=== PATIENT | female | born 1970 | race Caucasian/White ===

== ENCOUNTER 2018-06-23 12:22 | Observation (INO) | payer BC, OTHER ==
[2018-06-23] MEDS ORDERED: Aspirin 81 MG Tab.Chew PO ONE (12:37)
[2018-06-23] MEDS ORDERED: Sodium Chloride 0.9% 2.5 ML Syringe FLUSH PRN (12:38)
[2018-06-23] MEDS ORDERED: Nitroglycerin 2% Oint 1 GM UD Packet TOP ONE (12:38)
[2018-06-23] MEDS ORDERED: Sodium Chloride 0.9% 10 ML Syringe FLUSH PRN (12:38)
[2018-06-23] MEDS ORDERED: Sodium Chloride 0.9% 1,000 ML IV SCH (12:45)
--- NOTE | 2018-06-23 12:56 | EDM.PDOC ---
ED HPI GENERAL MEDICAL PROBLEM - General Chief Complaint: Chest Pain Stated Complaint: CHEST PAIN Time Seen by Provider: 06/23/18 14:38 - History of Present Illness INITIAL COMMENTS - FREE TEXT/NARRATIVE: HISTORY AND PHYSICAL: History of present illness: Patient's a 48-year-old white female with history of gastric bypass who is a smoker and presents with concern of chest pain for a week and half this been somewhat off and on associated shortness of breath and radiation to her left shoulder and arm she denies fever chills nausea vomiting denies palpitations or other concern Review of systems: As per history of present illness and below otherwise all systems reviewed and negative. Past medical history: As per history of present illness and as reviewed below otherwise noncontributory. Surgical history: As per history of present illness and as reviewed below otherwise noncontributory. Social history: No reported history of drug or alcohol abuse. Family history: As per history of present illness and as reviewed below otherwise noncontributory. Physical exam: HEENT: Atraumatic, normocephalic, pupils reactive, negative for conjunctival pallor or scleral icterus, mucous membranes moist, throat clear, neck supple, nontender, trachea midline. Lungs: Clear to auscultation, breath sounds equal bilaterally, chest nontender. Heart: S1S2, regular, negative for clicks, rubs, or JVD. Abdomen: Soft, nondistended, nontender. Negative for masses or hepatosplenomegaly. Negative for costovertebral tenderness. Pelvis: Stable nontender. Genitourinary: Deferred. Rectal: Deferred. Extremities: Atraumatic, negative for cords or calf pain. Neurovascular unremarkable. Neuro: Awake, alert, oriented. Cranial nerves II through XII unremarkable. Cerebellum unremarkable. Motor and sensory unremarkable throughout. Exam nonfocal. Diagnostics: CBC CMP PT/INR troponin EKG chest x-ray Therapeutics: Aspirin 324 mg Nitropaste 1 inch Impression: Chest pain Definitive disposition and diagnosis as appropriate pending reevaluation and review of above. chest Pain Score (Numeric/FACES): 6 - Related Data Allergies Allergy/AdvReac Type Severity Reaction Status Date / Time Penicillins Allergy Rash Verified 06/23/18 12:30 Home Meds: Home Meds Desvenlafaxine [Khedezla] 100 mg PO DAILY 06/23/18 [History] Gabapentin [Neurontin] 300 mg PO DAILY 06/23/18 [History] Past Medical History HEENT History: Reports: None Cardiovascular History: Reports: None Respiratory History: Reports: None Gastrointestinal History: Reports: None Genitourinary History: Reports: None [employer] TO [employer] History: Reports: None Musculoskeletal History: Reports: None Neurological History: Reports: None Psychiatric History: Reports: Anxiety, Depression Endocrine/Metabolic History: Reports: None Hematologic History: Reports: None Immunologic History: Reports: None Oncologic (Cancer) History: Reports: None Dermatologic History: Reports: None - Past Surgical History Head Surgeries/Procedures: Reports: None HEENT Surgical History: Reports: None Cardiovascular Surgical History: Reports: None Respiratory Surgical History: Reports: None GI Surgical History: Reports: Bariatric Procedure Female Surgical History: Reports: None Endocrine Surgical History: Reports: None Neurological Surgical History: Reports: None Musculoskeletal Surgical History: Reports: None Oncologic Surgical History: Reports: None Dermatological Surgical History: Reports: None Social & Family History - Family History Cardiac: Reports: OR - Tobacco Use Smoking Status *Q: Current Every Day Smoker Years of Tobacco use: 20 Packs/Tins Daily: 1 - Caffeine Use Caffeine Use: Reports: Coffee - Recreational Drug Use Recreational Drug Use: No ED ROS GENERAL - Review of Systems Review Of Systems: ROS reveals no pertinent complaints other than HPI. ED EXAM, GENERAL - Physical Exam Exam: See Below (See dictation) Course - Vital Signs Last Recorded V/S: Last Vital Signs Temp 36.0 C 06/23/18 12:31 Pulse 113 H 06/23/18 12:31 Resp 18 06/23/18 12:31 BP 149/71 H 06/23/18 12:31 Pulse Ox 99 06/23/18 12:31 - Orders/Labs/Meds Orders: Active Orders 24 hr Category Date Time Status Patient Status [ADT] Routine ADT 06/23/18 14:24 Active Cardiac Monitoring [RC] CONTINUOUS Care 06/23/18 14:26 Active EKG 12 Lead [EKG Documentation Completion] [RC] STAT Care 06/23/18 12:36 Active EKG Documentation Completion [RC] DAILY Care 06/24/18 08:00 Active Oxygen Therapy [RC] PRN Care 06/23/18 14:24 Active Up ad Bettina [RC] ASDIRECTED Care 06/23/18 14:24 Active VTE/DVT Education [RC] PER UNIT ROUTINE Care 06/23/18 14:24 Active Vital Signs [RC] Q4H Care 06/23/18 14:24 Active Heart Healthy Diet [DIET] Diet 06/23/18 Dinner Active Ang Chest [CT] Stat Exams 06/23/18 13:49 Ordered CBC WITH AUTO DIFF [HEME] AM Lab 06/24/18 05:11 Ordered COMPREHENSIVE METABOLIC PN,CMP [CHEM] AM Lab 06/24/18 05:11 Ordered CULTURE URINE [RM] Stat Lab 06/23/18 12:53 Received TROPONIN I [CHEM] Routine Lab 06/23/18 16:00 Ordered Acetaminophen [Tylenol] Med 06/23/18 14:24 Ordered 650 mg PO Q4H PRN Desvenlafaxine [Khedezla] Med 06/24/18 09:00 Ordered 100 mg PO DAILY Docusate Sodium [Colace] Med 06/23/18 14:24 Ordered 100 mg PO BID PRN Enoxaparin [Lovenox] Med 06/23/18 14:30 Ordered 30 mg SUBCUT Q24H Gabapentin [Neurontin] Med 06/24/18 09:00 Ordered 300 mg PO DAILY Morphine Med 06/23/18 14:24 Ordered 2 mg IVPUSH Q2H PRN Nicotine [Habitrol] Med 06/23/18 14:30 Ordered 14 mg TRDERM DAILY Ondansetron [Zofran ODT] Med 06/23/18 14:24 Ordered 4 mg PO Q6H PRN Sodium Chloride 0.9% [Normal Saline] 1,000 ml Med 06/23/18 12:45 Active IV ASDIRECTED Sodium Chloride 0.9% [Saline Flush] Med 06/23/18 12:38 Active 10 ml FLUSH ASDIRECTED PRN Sodium Chloride 0.9% [Saline Flush] Med 06/23/18 12:38 Active 2.5 ml FLUSH ASDIRECTED PRN Temazepam [Restoril] Med 06/23/18 14:24 Ordered 15 mg PO BEDTIME PRN oxyCODONE Med 06/23/18 14:24 Ordered 5 mg PO Q4H PRN Saline Lock Insert [OM.PC] Stat Oth 06/23/18 12:38 Ordered Sequential Compression Device [OM.PC] Per Unit Routine Oth 06/23/18 14:26 Ordered Resuscitation Status Routine Resus Stat 06/23/18 14:24 Ordered Medication Orders Acetaminophen (Tylenol) 650 mg PO Q4H PRN PRN Reason: Pain (Mild 1-3)/fever Docusate Sodium (Colace) 100 mg PO BID PRN PRN Reason: Constipation Enoxaparin Sodium (Lovenox) 30 mg SUBCUT Q24H GEOVANI Gabapentin (Neurontin) 300 mg PO DAILY [facility] Sodium Chloride (Normal Saline) 1,000 mls @ 125 mls/hr IV ASDIRECTED GEOVANI Last Admin: 06/23/18 12:49 Dose: 125 mls/hr Morphine Sulfate (Morphine) 2 mg IVPUSH Q2H PRN PRN Reason: Pain (severe 7-10) Stop: 06/24/18 14:27 Nicotine (Habitrol) 14 mg TRDERM DAILY [facility] Non-Formulary Medication (Desvenlafaxine [Khedezla]) 100 mg PO DAILY [facility] Ondansetron HCl (Zofran Odt) 4 mg PO Q6H PRN PRN Reason: nausea, able to take PO Oxycodone HCl (Oxycodone) 5 mg PO Q4H PRN PRN Reason: Pain (moderate 4-6) Sodium Chloride (Saline Flush) 10 ml FLUSH ASDIRECTED PRN PRN Reason: Keep Vein Open Last Admin: 06/23/18 12:49 Dose: 10 ml Sodium Chloride (Saline Flush) 2.5 ml FLUSH ASDIRECTED PRN PRN Reason: Keep Vein Open Last Admin: 06/23/18 12:49 Dose: 2.5 ml Temazepam (Restoril) 15 mg PO BEDTIME PRN PRN Reason: Sleep Labs: Laboratory Tests 06/23/18 06/23/18 06/23/18 Range/Units 12:38 12:38 12:38 WBC 7.06 (4.0-11.0) K/uL RBC 4.97 (4.30-5.90) M/uL Hgb 10.1 L (12.0-16.0) g/dL Hct 33.3 L (36.0-46.0) % MCV 67.0 L (80.0-98.0) fL MCH 20.3 L (27.0-32.0) pg MCHC 30.3 L (31.0-37.0) g/dL RDW Std Deviation 44.9 (28.0-62.0) fl RDW Coeff of Kirill 19 H (11.0-15.0) % Plt Count 464 H (150-400) K/uL MPV 9.00 (7.40-12.00) fL Nucleated RBC % 0.0 /100WBC Nucleated RBCs # 0 K/uL INR 0.98 D-Dimer, Quantitative 2.01 H (0.0-0.52) mg/LFEU Sodium 137 (136-145) mmol/L Potassium 3.8 (3.5-5.1) mmol/L Chloride 104 (98-107) mmol/L Carbon Dioxide 24.6 (21.0-32.0) mmol/L BUN 9 (7.0-18.0) mg/dL Creatinine 0.9 (0.6-1.0) mg/dL Est Cr Clr Drug Dosing 70.28 mL/min Estimated GFR (MDRD) > 60.0 ml/min Glucose 100 (74-106) mg/dL Calcium 8.8 (8.5-10.1) mg/dL Total Bilirubin 0.2 (0.2-1.0) mg/dL AST 22 (15-37) IU/L ALT 25 (14-63) IU/L Alkaline Phosphatase 188 H (46-116) U/L Troponin I < 0.050 (0.000-0.056) ng/mL Total Protein 7.6 (6.4-8.2) g/dL Albumin 3.7 (3.4-5.0) g/dL Globulin 3.9 H (2.0-3.5) g/dL Albumin/Globulin Ratio 1.0 L (1.3-2.8) Urine Color Urine Appearance Urine pH (5.0-8.0) Ur Specific [place] (1.001-1.035) Urine Protein (NEGATIVE) mg/dL Urine Glucose (UA) (NEGATIVE) mg/dL Urine Ketones (NEGATIVE) mg/dL Urine Occult Blood (NEGATIVE) Urine Nitrite (NEGATIVE) Urine Bilirubin (NEGATIVE) Urine Urobilinogen (<2.0) EU/dL Ur Leukocyte Esterase (NEGATIVE) Urine RBC (0-2/HPF) Urine WBC (0-5/HPF) Ur Epithelial Cells (NONE-FEW) Urine Bacteria (NEGATIVE) 06/23/18 Range/Units 12:53 WBC (4.0-11.0) K/uL RBC (4.30-5.90) M/uL Hgb (12.0-16.0) g/dL Hct (36.0-46.0) % MCV (80.0-98.0) fL MCH (27.0-32.0) pg MCHC (31.0-37.0) g/dL RDW Std Deviation (28.0-62.0) fl RDW Coeff of Kirill (11.0-15.0) % Plt Count (150-400) K/uL MPV (7.40-12.00) fL Nucleated RBC % /100WBC Nucleated RBCs # K/uL INR D-Dimer, Quantitative (0.0-0.52) mg/LFEU Sodium (136-145) mmol/L Potassium (3.5-5.1) mmol/L Chloride (98-107) mmol/L Carbon Dioxide (21.0-32.0) mmol/L BUN (7.0-18.0) mg/dL Creatinine (0.6-1.0) mg/dL Est Cr Clr Drug Dosing mL/min Estimated GFR (MDRD) ml/min Glucose (74-106) mg/dL Calcium (8.5-10.1) mg/dL Total Bilirubin (0.2-1.0) mg/dL AST (15-37) IU/L ALT (14-63) IU/L Alkaline Phosphatase (46-116) U/L Troponin I (0.000-0.056) ng/mL Total Protein (6.4-8.2) g/dL Albumin (3.4-5.0) g/dL Globulin (2.0-3.5) g/dL Albumin/Globulin Ratio (1.3-2.8) Urine Color YELLOW Urine Appearance CLEAR Urine pH 6.0 (5.0-8.0) Ur Specific [place] 1.015 (1.001-1.035) Urine Protein NEGATIVE (NEGATIVE) mg/dL Urine Glucose (UA) NEGATIVE (NEGATIVE) mg/dL Urine Ketones NEGATIVE (NEGATIVE) mg/dL Urine Occult Blood TRACE-INTACT (NEGATIVE) Urine Nitrite NEGATIVE (NEGATIVE) Urine Bilirubin NEGATIVE (NEGATIVE) Urine Urobilinogen 0.2 (<2.0) EU/dL Ur Leukocyte Esterase NEGATIVE (NEGATIVE) Urine RBC 0-1 (0-2/HPF) Urine WBC 1-3 (0-5/HPF) Ur Epithelial Cells MODERATE (NONE-FEW) Urine Bacteria 1+ H (NEGATIVE) Meds: Medications Generic Name Dose Route Start Last Admin Trade Name Bobq PRN Reason Stop Dose Admin Acetaminophen 650 mg 06/23/18 14:24 Tylenol PO Q4H PRN Pain (Mild 1-3)/fever Docusate Sodium 100 mg 06/23/18 14:24 Colace PO BID PRN Constipation Enoxaparin Sodium 30 mg 06/23/18 14:30 Lovenox SUBCUT Q24H GEOVANI Gabapentin 300 mg 06/24/18 09:00 Neurontin PO DAILY [facility] Sodium Chloride 1,000 mls @ 125 mls/hr 06/23/18 12:45 06/23/18 12:49 Normal Saline IV 125 mls/hr ASDIRECTED GEOVANI Administration Morphine Sulfate 2 mg 06/23/18 14:24 Morphine IVPUSH 06/24/18 14:27 Q2H PRN Pain (severe 7-10) Nicotine 14 mg 06/23/18 14:30 Habitrol TRDERM DAILY [facility] Non-Formulary Medication 100 mg 06/24/18 09:00 Desvenlafaxine [Khedezla] PO DAILY [facility] Ondansetron HCl 4 mg 06/23/18 14:24 Zofran Odt PO Q6H PRN nausea, able to take PO Oxycodone HCl 5 mg 06/23/18 14:24 Oxycodone PO Q4H PRN Pain (moderate 4-6) Sodium Chloride 10 ml 06/23/18 12:38 06/23/18 12:49 Saline Flush FLUSH 10 ml ASDIRECTED PRN Administration Keep Vein Open Sodium Chloride 2.5 ml 06/23/18 12:38 06/23/18 12:49 Saline Flush FLUSH 2.5 ml ASDIRECTED PRN Administration Keep Vein Open Temazepam 15 mg 06/23/18 14:24 Restoril PO BEDTIME PRN Sleep Discontinued Medications Generic Name Dose Route Start Last Admin Trade Name Bobq PRN Reason Stop Dose Admin Aspirin 324 mg 06/23/18 12:37 06/23/18 12:49 Aspirin PO 06/23/18 12:38 324 mg ONETIME ONE Administration Iopamidol 50 ml 06/23/18 14:14 Isovue Multipack-370 (76%) IVPUSH 06/23/18 14:15 ONETIME STA Nitroglycerin 1 gm 06/23/18 12:38 06/23/18 12:49 Nitro-Bid 2% TOP 06/23/18 12:39 1 gm ONETIME ONE Administration Departure - Departure Time of Disposition: 14:38 Disposition: Refer to Observation Condition: Good Clinical Impression: Chest pain - Discharge Information Forms: ED Department Discharge - My Orders Last 24 Hours: My Active Orders 06/23/18 12:36 EKG 12 Lead [EKG Documentation Completion] [RC] STAT 06/23/18 12:38 Sodium Chloride 0.9% [Saline Flush] 10 ml FLUSH ASDIRECTED PRN Sodium Chloride 0.9% [Saline Flush] 2.5 ml FLUSH ASDIRECTED PRN Saline Lock Insert [OM.PC] Stat 06/23/18 12:45 Sodium Chloride 0.9% [Normal Saline] 1,000 ml IV ASDIRECTED 06/23/18 12:53 CULTURE URINE [RM] Stat 06/23/18 13:49 Ang Chest [CT] Stat - Assessment/Plan Last 24 Hours: My Active Orders 06/23/18 12:36 EKG 12 Lead [EKG Documentation Completion] [RC] STAT 06/23/18 12:38 Sodium Chloride 0.9% [Saline Flush] 10 ml FLUSH ASDIRECTED PRN Sodium Chloride 0.9% [Saline Flush] 2.5 ml FLUSH ASDIRECTED PRN Saline Lock Insert [OM.PC] Stat 06/23/18 12:45 Sodium Chloride 0.9% [Normal Saline] 1,000 ml IV ASDIRECTED 06/23/18 12:53 CULTURE URINE [RM] Stat 06/23/18 13:49 Ang Chest [CT] Stat
[2018-06-23 13:11] LABS: CHLORIDE,CL 104 mmol/L (98-107); SODIUM,NA 137 mmol/L (136-145)
--- NOTE | 2018-06-23 13:56 | CR ---
EXAM DATE: 06/23/18 PATIENT'S AGE: 48 Patient: OMAR HANDY Facility: [place], [place] Site . Site : [id number] Study: XRay Chest [id number] 1:18:41 PM Ordering Physician: Yumiko Tavera Final Report: INDICATION: Chest pain TECHNIQUE: Two view chest. FINDINGS: The lungs are clear. The heart, mediastinum and pulmonary vessels are of normal size. There is no evidence of pleural disease. IMPRESSION: Negative chest. Dictated by Naty Morrison MD @ Jun 23 2018 1:50PM (Electronic Signature) Report Signed by Proxy. JOHNY
[2018-06-23] MEDS ORDERED: Iopamidol 755 MG/ML 500 ML Multipack Bottle IVPUSH STA (14:14)
[2018-06-23] MEDS ORDERED: Temazepam 15 MG Cap PO PRN (14:24)
[2018-06-23] MEDS ORDERED: Docusate Sodium 100 MG Cap PO PRN (14:24)
[2018-06-23] MEDS ORDERED: oxyCODONE 5 MG Tab PO PRN (14:24)
[2018-06-23] MEDS ORDERED: Ondansetron 4 MG Tab.DIS PO PRN (14:24)
[2018-06-23] MEDS ORDERED: Morphine 2 MG/ML Syringe IVPUSH PRN (14:24)
[2018-06-23] MEDS ORDERED: Acetaminophen 325 MG Tab PO PRN (14:24)
[2018-06-23] MEDS ORDERED: Enoxaparin 30 MG/0.3 ML Syringe SUBCUT SCH (14:30)
--- NOTE | 2018-06-23 14:32 | PCM.HP ---
H&P History of Present Illness - General Date of Service: 06/23/18 Admit Problem/Dx: Admission Diagnosis/Problem Admission Diagnosis/Problem Chest pain Source of Information: Patient, Family, Old Records History Limitations: Reports: No Limitations - History of Present Illness Initial Comments - Free Text/Narative: The patient is an otherwise healthy 48-year-old lady who has presented to the emergency department with a complaint of chest pain. The patient reports that she has had off-and-on for the past week midsternal chest pain which is described as pressure and occasional pain in her left arm and the left side of her mandible. The patient has had no specific aggravating or relieving factors and the chest pain came on unprovoked. The patient has denied any nausea or vomiting associated with this. She does have some diaphoresis. The patient had originally attributed the pain to indigestion. She also be noted that the patient had parents that had coronary artery disease in their mid 40s. The patient has been in her usual state of health up until the present time. The patient has no other complaints at the present. Onset of Symptoms: Reports: Gradual Duration of Symptoms: Reports: Week(s):, Intermittent Location: Reports: Chest, Upper Extremity, Left, Radiates to (Neck and left lower jaw) Quality: Reports: Pressure Severity: Moderate Improves with: Reports: Rest Worsens with: Reports: Breathing Associated Symptoms: Reports: Diaphoresis chest Pain Score (Numeric/FACES): 6 - Related Data Allergies/Adverse Reactions: Allergies Allergy/AdvReac Type Severity Reaction Status Date / Time Penicillins Allergy Rash Verified 06/23/18 12:30 Home Medications: Home Meds Desvenlafaxine [Khedezla] 100 mg PO DAILY 06/23/18 [History] Gabapentin [Neurontin] 150 mg PO BID 06/23/18 [History] Past Medical History HEENT History: Reports: None Cardiovascular History: Reports: None Respiratory History: Reports: None Gastrointestinal History: Reports: None Genitourinary History: Reports: None GEOMAGNETICIAN History: Reports: None Musculoskeletal History: Reports: None Neurological History: Reports: None Psychiatric History: Reports: Anxiety, Depression Endocrine/Metabolic History: Reports: None Hematologic History: Reports: None Immunologic History: Reports: None Oncologic (Cancer) History: Reports: None Dermatologic History: Reports: None - Past Surgical History Head Surgeries/Procedures: Reports: None HEENT Surgical History: Reports: None Cardiovascular Surgical History: Reports: None Respiratory Surgical History: Reports: None GI Surgical History: Reports: Bariatric Procedure Female Surgical History: Reports: None Endocrine Surgical History: Reports: None Neurological Surgical History: Reports: None Musculoskeletal Surgical History: Reports: None Oncologic Surgical History: Reports: None Dermatological Surgical History: Reports: None Social & Family History - Family History Cardiac: Reports: [place] - Tobacco Use Smoking Status *Q: Current Every Day Smoker Years of Tobacco use: 20 Packs/Tins Daily: 1 - Caffeine Use Caffeine Use: Reports: Coffee - Recreational Drug Use Recreational Drug Use: No H&P Review of Systems - Review of Systems: Review Of Systems: See Below General: Reports: Diaphoresis HEENT: Reports: No Symptoms Pulmonary: Reports: Shortness of Breath Cardiovascular: Reports: Chest Pain Gastrointestinal: Reports: No Symptoms Genitourinary: Reports: No Symptoms Musculoskeletal: Reports: No Symptoms Skin: Reports: No Symptoms Psychiatric: Reports: No Symptoms Neurological: Reports: No Symptoms Hematologic/Lymphatic: Reports: No Symptoms Immunologic: Reports: No Symptoms Exam - Exam Exam: See Below - Vital Signs Vital Signs: Last Vital Signs Temp 36.0 C 06/23/18 12:31 Pulse 113 H 06/23/18 12:31 Resp 18 06/23/18 12:31 BP 149/71 H 06/23/18 12:31 Pulse Ox 99 06/23/18 12:31 Weight: 77.111 kg - Exam Quality Assessment: No: Supplemental Oxygen General: Alert, Oriented, Cooperative HEENT: Conjunctiva Clear, EACs Clear, EOMI, Mucosa Moist & Ivan, Nares Patent, Pupils Equal, Pupils Reactive Neck: Supple, Trachea Midline, Full Range of Motion. No: Lymphadenopathy, Thyromegaly Lungs: Clear to Auscultation, Normal Respiratory Effort Cardiovascular: Regular Rate, Regular Rhythm, Normal S1, Normal S2. No: Systolic Murmur, Diastolic Murmur GI/Abdominal Exam: Normal Bowel Sounds, Soft, Non-Tender, No Distention, No Mass (Female) Exam: Deferred Rectal (Female) Exam: Deferred Back Exam: Normal Inspection, Full Range of Motion Extremities: Normal Inspection, Normal Range of Motion, Non-Tender, No Pedal Edema Skin: Warm, Dry, Intact Neurological: Cranial Nerves Intact Neuro Extensive - Mental Status: Alert, Oriented x3 Neuro Extensive - Motor, Sensory, Reflexes: CN II-XII Intact, Normal Gait Psychiatric: Alert, Normal Affect, Normal Mood - Patient Data Lab Results Last 24 hrs: Laboratory Results - last 24 hr 06/23/18 06/23/18 06/23/18 Range/Units 12:38 12:38 12:38 WBC 7.06 (4.0-11.0) K/uL RBC 4.97 (4.30-5.90) M/uL Hgb 10.1 L (12.0-16.0) g/dL Hct 33.3 L (36.0-46.0) % MCV 67.0 L (80.0-98.0) fL MCH 20.3 L (27.0-32.0) pg MCHC 30.3 L (31.0-37.0) g/dL RDW Std Deviation 44.9 (28.0-62.0) fl RDW Coeff of Kirill 19 H (11.0-15.0) % Plt Count 464 H (150-400) K/uL MPV 9.00 (7.40-12.00) fL Nucleated RBC % 0.0 /100WBC Nucleated RBCs # 0 K/uL INR 0.98 D-Dimer, Quantitative 2.01 H (0.0-0.52) mg/LFEU Sodium 137 (136-145) mmol/L Potassium 3.8 (3.5-5.1) mmol/L Chloride 104 (98-107) mmol/L Carbon Dioxide 24.6 (21.0-32.0) mmol/L BUN 9 (7.0-18.0) mg/dL Creatinine 0.9 (0.6-1.0) mg/dL Est Cr Clr Drug Dosing 70.28 mL/min Estimated GFR (MDRD) > 60.0 ml/min Glucose 100 (74-106) mg/dL Calcium 8.8 (8.5-10.1) mg/dL Total Bilirubin 0.2 (0.2-1.0) mg/dL AST 22 (15-37) IU/L ALT 25 (14-63) IU/L Alkaline Phosphatase 188 H (46-116) U/L Troponin I < 0.050 (0.000-0.056) ng/mL Total Protein 7.6 (6.4-8.2) g/dL Albumin 3.7 (3.4-5.0) g/dL Globulin 3.9 H (2.0-3.5) g/dL Albumin/Globulin Ratio 1.0 L (1.3-2.8) Urine Color Urine Appearance Urine pH (5.0-8.0) Ur Specific Grant (1.001-1.035) Urine Protein (NEGATIVE) mg/dL Urine Glucose (UA) (NEGATIVE) mg/dL Urine Ketones (NEGATIVE) mg/dL Urine Occult Blood (NEGATIVE) Urine Nitrite (NEGATIVE) Urine Bilirubin (NEGATIVE) Urine Urobilinogen (<2.0) EU/dL Ur Leukocyte Esterase (NEGATIVE) Urine RBC (0-2/HPF) Urine WBC (0-5/HPF) Ur Epithelial Cells (NONE-FEW) Urine Bacteria (NEGATIVE) 06/23/18 Range/Units 12:53 WBC (4.0-11.0) K/uL RBC (4.30-5.90) M/uL Hgb (12.0-16.0) g/dL Hct (36.0-46.0) % MCV (80.0-98.0) fL MCH (27.0-32.0) pg MCHC (31.0-37.0) g/dL RDW Std Deviation (28.0-62.0) fl RDW Coeff of Kirill (11.0-15.0) % Plt Count (150-400) K/uL MPV (7.40-12.00) fL Nucleated RBC % /100WBC Nucleated RBCs # K/uL INR D-Dimer, Quantitative (0.0-0.52) mg/LFEU Sodium (136-145) mmol/L Potassium (3.5-5.1) mmol/L Chloride (98-107) mmol/L Carbon Dioxide (21.0-32.0) mmol/L BUN (7.0-18.0) mg/dL Creatinine (0.6-1.0) mg/dL Est Cr Clr Drug Dosing mL/min Estimated GFR (MDRD) ml/min Glucose (74-106) mg/dL Calcium (8.5-10.1) mg/dL Total Bilirubin (0.2-1.0) mg/dL AST (15-37) IU/L ALT (14-63) IU/L Alkaline Phosphatase (46-116) U/L Troponin I (0.000-0.056) ng/mL Total Protein (6.4-8.2) g/dL Albumin (3.4-5.0) g/dL Globulin (2.0-3.5) g/dL Albumin/Globulin Ratio (1.3-2.8) Urine Color YELLOW Urine Appearance CLEAR Urine pH 6.0 (5.0-8.0) Ur Specific Grant 1.015 (1.001-1.035) Urine Protein NEGATIVE (NEGATIVE) mg/dL Urine Glucose (UA) NEGATIVE (NEGATIVE) mg/dL Urine Ketones NEGATIVE (NEGATIVE) mg/dL Urine Occult Blood TRACE-INTACT (NEGATIVE) Urine Nitrite NEGATIVE (NEGATIVE) Urine Bilirubin NEGATIVE (NEGATIVE) Urine Urobilinogen 0.2 (<2.0) EU/dL Ur Leukocyte Esterase NEGATIVE (NEGATIVE) Urine RBC 0-1 (0-2/HPF) Urine WBC 1-3 (0-5/HPF) Ur Epithelial Cells MODERATE (NONE-FEW) Urine Bacteria 1+ H (NEGATIVE) Result Diagrams: 06/23/18 12:38 06/23/18 12:38 - Problem List (1) Atypical angina SNOMED Code(s): 682063939 ICD Code: I20.8 - OTHER FORMS OF ANGINA PECTORIS Status: Acute Priority: High Current Visit: Yes (2) History of gastric bypass SNOMED Code(s): 988378170 ICD Code: Z98.84 - BARIATRIC SURGERY STATUS Status: Chronic Priority: High Current Visit: Yes (3) Iron deficiency 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 SNOMED Code(s): 906037799 ICD Code: D50.8 - OTHER IRON DEFICIENCY ANEMIAS Status: Chronic Priority : Medium Current Visit: Yes (4) Tobacco use SNOMED Code(s): 119039173 ICD Code: Z72.0 - TOBACCO USE Status: Acute Current Visit: Yes Problem List Initiated/Reviewed/Updated: Yes Orders Last 24hrs: Active Orders 24 hr Category Date Time Status Patient Status [ADT] Routine ADT 06/23/18 14:24 Ordered Cardiac Monitoring [RC] CONTINUOUS Care 06/23/18 14:26 Ordered EKG 12 Lead [EKG Documentation Completion] [RC] STAT Care 06/23/18 12:36 Active EKG Documentation Completion [RC] DAILY Care 06/24/18 08:00 Ordered Oxygen Therapy [RC] PRN Care 06/23/18 14:24 Ordered Up ad Bettina [RC] ASDIRECTED Care 06/23/18 14:24 Ordered VTE/DVT Education [RC] PER UNIT ROUTINE Care 06/23/18 14:24 Ordered Vital Signs [RC] Q4H Care 06/23/18 14:24 Ordered Heart Healthy Diet [DIET] Diet 06/23/18 Dinner Ordered Ang Chest [CT] Stat Exams 06/23/18 13:49 Ordered CBC WITH AUTO DIFF [HEME] AM Lab 06/24/18 05:11 Ordered COMPREHENSIVE METABOLIC PN,CMP [CHEM] AM Lab 06/24/18 05:11 Ordered CULTURE URINE [RM] Stat Lab 06/23/18 12:53 Received TROPONIN I [CHEM] Timed Lab 06/23/18 16:00 Ordered Acetaminophen [Tylenol] Med 06/23/18 14:24 Ordered 650 mg PO Q4H PRN Desvenlafaxine [Khedezla] Med 06/24/18 09:00 Ordered 100 mg PO DAILY Docusate Sodium [Colace] Med 06/23/18 14:24 Ordered 100 mg PO BID PRN Enoxaparin [Lovenox] Med 06/23/18 14:30 Ordered 30 mg SUBCUT Q24H Gabapentin [Neurontin] Med 06/24/18 09:00 Ordered 300 mg PO DAILY Morphine Med 06/23/18 14:24 Ordered 2 mg IVPUSH Q2H PRN Nicotine [Habitrol] Med 06/23/18 14:30 Ordered 14 mg TRDERM DAILY Ondansetron [Zofran ODT] Med 06/23/18 14:24 Ordered 4 mg PO Q6H PRN Sodium Chloride 0.9% [Normal Saline] 1,000 ml Med 06/23/18 12:45 Active IV ASDIRECTED Sodium Chloride 0.9% [Saline Flush] Med 06/23/18 12:38 Active 10 ml FLUSH ASDIRECTED PRN Sodium Chloride 0.9% [Saline Flush] Med 06/23/18 12:38 Active 2.5 ml FLUSH ASDIRECTED PRN Temazepam [Restoril] Med 06/23/18 14:24 Ordered 15 mg PO BEDTIME PRN oxyCODONE Med 06/23/18 14:24 Ordered 5 mg PO Q4H PRN Saline Lock Insert [OM.PC] Stat Oth 06/23/18 12:38 Ordered Sequential Compression Device [OM.PC] Per Unit Routine Oth 06/23/18 14:26 Ordered Resuscitation Status Routine Resus Stat 06/23/18 14:24 Ordered Medication Orders Acetaminophen (Tylenol) 650 mg PO Q4H PRN PRN Reason: Pain (Mild 1-3)/fever Docusate Sodium (Colace) 100 mg PO BID PRN PRN Reason: Constipation Enoxaparin Sodium (Lovenox) 30 mg SUBCUT Q24H [facility] Sodium Chloride (Normal Saline) 1,000 mls @ 125 mls/hr IV ASDIRECTED GEOVANI Last Admin: 06/23/18 12:49 Dose: 125 mls/hr Morphine Sulfate (Morphine) 2 mg IVPUSH Q2H PRN PRN Reason: Pain (severe 7-10) Stop: 06/24/18 14:27 Nicotine (Habitrol) 14 mg TRDERM DAILY [facility] Ondansetron HCl (Zofran Odt) 4 mg PO Q6H PRN PRN Reason: nausea, able to take PO Oxycodone HCl (Oxycodone) 5 mg PO Q4H PRN PRN Reason: Pain (moderate 4-6) Sodium Chloride (Saline Flush) 10 ml FLUSH ASDIRECTED PRN PRN Reason: Keep Vein Open Last Admin: 06/23/18 12:49 Dose: 10 ml Sodium Chloride (Saline Flush) 2.5 ml FLUSH ASDIRECTED PRN PRN Reason: Keep Vein Open Last Admin: 06/23/18 12:49 Dose: 2.5 ml Temazepam (Restoril) 15 mg PO BEDTIME PRN PRN Reason: Sleep Assessment/Plan Comment:: The patient is an otherwise healthy 48-year-old lady who had been admitted to observation secondary to chest pain. The patient's symptoms sound very much like unstable angina and I ordered repeat troponins. I also ordered a repeat EKG in the morning. Further laboratory testings of also been ordered. The patient also is a smoker and she's been strongly counseled about smoking cessation. I will also afforded a nicotine patch for her. The patient also is mildly anemic and this is likely secondary to her previous gastric bypass surgery and poor absorption of iron. The patient should follow-up with a primary care physician with regards to malabsorption syndrome for this. CBC has been ordered. The patient has been encouraged to ambulate. She'll be kept on IV saline lock. I have also ordered pain medications for her. If the patient has otherwise ruled out coronary event I strongly recommend that the patient have nuclear medicine stress test and follow-up with cardiology within 1 week to address this issue. She should be appropriate for discharge tomorrow if ruled out.
[2018-06-23] MEDS: Nicotine 14 MG/24 Hr Patch TRDERM SCH (15:28)
[2018-06-23] MEDS ORDERED: Magnesium Hydroxide 400 MG/5 ML Susp 30 ML Cup PO ONE (18:18)
[2018-06-23] MEDS: Gabapentin 300 MG Cap PO SCH (20:49)
[2018-06-23] MEDS ORDERED: Gabapentin 100 MG Cap PO SCH ×2 (21:00)
[2018-06-23] MEDS: Ranitidine 15 MG/ML Syrup 10 ML UD Cup PO SCH (22:31)
[2018-06-24 06:02] LABS: CHLORIDE,CL 107 mmol/L (98-107); SODIUM,NA 140 mmol/L (136-145)
[2018-06-24 07:26] VITALS: BP 128/70
[2018-06-24] MEDS: Ranitidine 15 MG/ML Syrup 10 ML UD Cup PO SCH (08:35)
[2018-06-24] MEDS: Gabapentin 300 MG Cap PO SCH (08:35)
[2018-06-24] MEDS: Nicotine 14 MG/24 Hr Patch TRDERM SCH ×2 (08:36→08:43)
[2018-06-24] MEDS: DESVENLAFAXINE 100 MG PO SCH ×2 (08:38→08:41)
[2018-06-24] MEDS ORDERED: Gabapentin 100 MG Cap PO SCH (09:00)
[2018-06-24] MEDS ORDERED: Gabapentin 300 MG Cap PO SCH (09:00)
--- NOTE | 2018-06-24 09:02 | PCM.DCSUM1 ---
<Toby Houston - Last Filed: 06/24/18 08:49> Discharge Summary - Hospital Course Free Text/Narrative:: Admission date:06/23/18 Discharge date:06/24/18 Admission diagnosis: 1. Atypical chest pain 2. History of gastric bypass 3. Iron deficiency anemia 4. Tobacco use Discharge diagnosis: 1. Atypical chest pain, ACS ruled out. 2. History of gastric bypass 3. Iron deficiency anemia due to above 4. Tobacco use Procedures: none Consults: none Hospital course: Rajan Meza is a 48 y/o female with a history of previous gastric bypass who presented to the ER complaining of chest pain. Initial troponins were 0.05. They were trended and remained at 0.05. CT chest did not show any pulmonary embolism, but it did show a suspicious left thyroid gland nodule. She will need an outpatient ultrasound to further assess this. Patient's chest pain resolved. She was recommended to take over the counter Zantac. In addition, she was recommended to restart her Iron pills since she was anemic due to iron deficiency. She will also need an outpatient stress test to further assess her symptoms. Follow-up: 1. Your primare care provider, Dr. Grijalva within 2 weeks. - Discharge Data Discharge Date: 06/24/18 Discharge Disposition: Home, Self-Care 01 Condition: Fair - Patient Instructions Diet: Regular Diet as Tolerated Activity: As Tolerated Notify Provider of: Fever, Increased Pain, Swelling and Redness, Drainage, Nausea and/or Vomiting - Discharge Plan *PRESCRIPTION DRUG MONITORING PROGRAM REVIEWED*: Not Applicable *COPY OF PRESCRIPTION DRUG MONITORING REPORT IN PATIENT SHAENLL: Not Applicable Home Medications: Home Meds Desvenlafaxine [Khedezla] 100 mg PO DAILY 06/23/18 [History] Gabapentin [Neurontin] 150 mg PO BID 06/23/18 [History] Patient Handouts: Nonspecific Chest Pain, [id number] Referrals: [facility] [Outside] Jb Grijalva MD [Physician] - 07/05/18 10:15 am - Discharge Summary/Plan Comment DC Time >30 min.: No - Patient Data Vitals - Most Recent: Last Vital Signs Temp 37.3 C 06/24/18 07:25 Pulse 81 06/24/18 04:00 Resp 14 09/27/18 07:25 BP 128/70 06/24/18 07:25 Pulse Ox 95 06/24/18 07:25 Weight - Most Recent: 77.111 kg I&O - Last 24 hours: Intake & Output 06/23/18 06/24/18 06/24/18 22:59 06:59 14:59 Intake Total 700 Output Total 1500 Balance -800 Lab Results - Last 24 hrs: Laboratory Results - last 24 hr 06/23/18 06/23/18 06/23/18 Range/Units 12:38 12:38 12:38 WBC 7.06 (4.0-11.0) K/uL RBC 4.97 (4.30-5.90) M/uL Hgb 10.1 L (12.0-16.0) g/dL Hct 33.3 L (36.0-46.0) % MCV 67.0 L (80.0-98.0) fL MCH 20.3 L (27.0-32.0) pg MCHC 30.3 L (31.0-37.0) g/dL RDW Std Deviation 44.9 (28.0-62.0) fl RDW Coeff of Kirill 19 H (11.0-15.0) % Plt Count 464 H (150-400) K/uL MPV 9.00 (7.40-12.00) fL Add Manual Diff Neutrophils % (Manual) (48.0-80.0) % Band Neutrophils % % Lymphocytes % (Manual) (16.0-40.0) % Monocytes % (Manual) (0.0-15.0) % Eosinophils % (Manual) (0.0-7.0) % Basophils % (Manual) (0.0-1.5) % Nucleated RBC % 0.0 /100WBC Absolute Seg Neuts (1.4-5.7) Band Neutrophils # Lymphocytes # (Manual) (0.6-2.4) Monocytes # (Manual) (0.0-0.8) Eosinophils # (Manual) (0.0-0.7) Basophils # (Manual) (0.0-0.1) Nucleated RBCs # 0 K/uL INR 0.98 D-Dimer, Quantitative 2.01 H (0.0-0.52) mg/LFEU Sodium 137 (136-145) mmol/L Potassium 3.8 (3.5-5.1) mmol/L Chloride 104 (98-107) mmol/L Carbon Dioxide 24.6 (21.0-32.0) mmol/L BUN 9 (7.0-18.0) mg/dL Creatinine 0.9 (0.6-1.0) mg/dL Est Cr Clr Drug Dosing 70.28 mL/min Estimated GFR (MDRD) > 60.0 ml/min Glucose 100 (74-106) mg/dL Calcium 8.8 (8.5-10.1) mg/dL Total Bilirubin 0.2 (0.2-1.0) mg/dL AST 22 (15-37) IU/L ALT 25 (14-63) IU/L Alkaline Phosphatase 188 H (46-116) U/L Troponin I < 0.050 (0.000-0.056) ng/mL Total Protein 7.6 (6.4-8.2) g/dL Albumin 3.7 (3.4-5.0) g/dL Globulin 3.9 H (2.0-3.5) g/dL Albumin/Globulin Ratio 1.0 L (1.3-2.8) Urine Color Urine Appearance Urine pH (5.0-8.0) Ur Specific [place] (1.001-1.035) Urine Protein (NEGATIVE) mg/dL Urine Glucose (UA) (NEGATIVE) mg/dL Urine Ketones (NEGATIVE) mg/dL Urine Occult Blood (NEGATIVE) Urine Nitrite (NEGATIVE) Urine Bilirubin (NEGATIVE) Urine Urobilinogen (<2.0) EU/dL Ur Leukocyte Esterase (NEGATIVE) Urine RBC (0-2/HPF) Urine WBC (0-5/HPF) Ur Epithelial Cells (NONE-FEW) Urine Bacteria (NEGATIVE) 06/23/18 06/23/18 06/23/18 Range/Units 12:53 16:16 22:12 WBC (4.0-11.0) K/uL RBC (4.30-5.90) M/uL Hgb (12.0-16.0) g/dL Hct (36.0-46.0) % MCV (80.0-98.0) fL MCH (27.0-32.0) pg MCHC (31.0-37.0) g/dL RDW Std Deviation (28.0-62.0) fl RDW Coeff of Kirill (11.0-15.0) % Plt Count (150-400) K/uL MPV (7.40-12.00) fL Add Manual Diff Neutrophils % (Manual) (48.0-80.0) % Band Neutrophils % % Lymphocytes % (Manual) (16.0-40.0) % Monocytes % (Manual) (0.0-15.0) % Eosinophils % (Manual) (0.0-7.0) % Basophils % (Manual) (0.0-1.5) % Nucleated RBC % /100WBC Absolute Seg Neuts (1.4-5.7) Band Neutrophils # Lymphocytes # (Manual) (0.6-2.4) Monocytes # (Manual) (0.0-0.8) Eosinophils # (Manual) (0.0-0.7) Basophils # (Manual) (0.0-0.1) Nucleated RBCs # K/uL INR D-Dimer, Quantitative (0.0-0.52) mg/LFEU Sodium (136-145) mmol/L Potassium (3.5-5.1) mmol/L Chloride (98-107) mmol/L Carbon Dioxide (21.0-32.0) mmol/L BUN (7.0-18.0) mg/dL Creatinine (0.6-1.0) mg/dL Est Cr Clr Drug Dosing mL/min Estimated GFR (MDRD) ml/min Glucose (74-106) mg/dL Calcium (8.5-10.1) mg/dL Total Bilirubin (0.2-1.0) mg/dL AST (15-37) IU/L ALT (14-63) IU/L Alkaline Phosphatase (46-116) U/L Troponin I < 0.050 < 0.050 (0.000-0.056) ng/mL Total Protein (6.4-8.2) g/dL Albumin (3.4-5.0) g/dL Globulin (2.0-3.5) g/dL Albumin/Globulin Ratio (1.3-2.8) Urine Color YELLOW Urine Appearance CLEAR Urine pH 6.0 (5.0-8.0) Ur Specific [place] 1.015 (1.001-1.035) Urine Protein NEGATIVE (NEGATIVE) mg/dL Urine Glucose (UA) NEGATIVE (NEGATIVE) mg/dL Urine Ketones NEGATIVE (NEGATIVE) mg/dL Urine Occult Blood TRACE-INTACT (NEGATIVE) Urine Nitrite NEGATIVE (NEGATIVE) Urine Bilirubin NEGATIVE (NEGATIVE) Urine Urobilinogen 0.2 (<2.0) EU/dL Ur Leukocyte Esterase NEGATIVE (NEGATIVE) Urine RBC 0-1 (0-2/HPF) Urine WBC 1-3 (0-5/HPF) Ur Epithelial Cells MODERATE (NONE-FEW) Urine Bacteria 1+ H (NEGATIVE) 06/24/18 06/24/18 Range/Units 05:15 05:15 WBC 5.20 (4.0-11.0) K/uL RBC 4.66 (4.30-5.90) M/uL Hgb 9.4 L (12.0-16.0) g/dL Hct 31.2 L (36.0-46.0) % MCV 67.0 L (80.0-98.0) fL MCH 20.2 L (27.0-32.0) pg MCHC 30.1 L (31.0-37.0) g/dL RDW Std Deviation 44.3 (28.0-62.0) fl RDW Coeff of Kirill 18 H (11.0-15.0) % Plt Count 442 H (150-400) K/uL MPV 9.20 (7.40-12.00) fL Add Manual Diff YES Neutrophils % (Manual) 33 L (48.0-80.0) % Band Neutrophils % 2 % Lymphocytes % (Manual) 39 (16.0-40.0) % Monocytes % (Manual) 7 (0.0-15.0) % Eosinophils % (Manual) 17 H (0.0-7.0) % Basophils % (Manual) 2 H (0.0-1.5) % Nucleated RBC % 0.0 /100WBC Absolute Seg Neuts 1.7 (1.4-5.7) Band Neutrophils # 0.1 Lymphocytes # (Manual) 2.0 (0.6-2.4) Monocytes # (Manual) 0.4 (0.0-0.8) Eosinophils # (Manual) 0.9 H (0.0-0.7) Basophils # (Manual) 0.1 (0.0-0.1) Nucleated RBCs # 0 K/uL INR D-Dimer, Quantitative (0.0-0.52) mg/LFEU Sodium 140 (136-145) mmol/L Potassium 4.1 (3.5-5.1) mmol/L Chloride 107 (98-107) mmol/L Carbon Dioxide 24.5 (21.0-32.0) mmol/L BUN 9 (7.0-18.0) mg/dL Creatinine 0.8 (0.6-1.0) mg/dL Est Cr Clr Drug Dosing 79.07 mL/min Estimated GFR (MDRD) > 60.0 ml/min Glucose 95 (74-106) mg/dL Calcium 8.8 (8.5-10.1) mg/dL Total Bilirubin 0.2 (0.2-1.0) mg/dL AST 17 (15-37) IU/L ALT 19 (14-63) IU/L Alkaline Phosphatase 163 H (46-116) U/L Troponin I (0.000-0.056) ng/mL Total Protein 6.8 (6.4-8.2) g/dL Albumin 3.2 L (3.4-5.0) g/dL Globulin 3.6 H (2.0-3.5) g/dL Albumin/Globulin Ratio 0.9 L (1.3-2.8) Urine Color Urine Appearance Urine pH (5.0-8.0) Ur Specific [place] (1.001-1.035) Urine Protein (NEGATIVE) mg/dL Urine Glucose (UA) (NEGATIVE) mg/dL Urine Ketones (NEGATIVE) mg/dL Urine Occult Blood (NEGATIVE) Urine Nitrite (NEGATIVE) Urine Bilirubin (NEGATIVE) Urine Urobilinogen (<2.0) EU/dL Ur Leukocyte Esterase (NEGATIVE) Urine RBC (0-2/HPF) Urine WBC (0-5/HPF) Ur Epithelial Cells (NONE-FEW) Urine Bacteria (NEGATIVE) Med Orders - Current: Current Medications Acetaminophen (Tylenol) 650 mg PO Q4H PRN PRN Reason: Pain (Mild 1-3)/fever Last Admin: 06/23/18 20:49 Dose: 650 mg Docusate Sodium (Colace) 100 mg PO BID PRN PRN Reason: Constipation Enoxaparin Sodium (Lovenox) 30 mg SUBCUT Q24H [facility] Last Admin: 06/23/18 16:28 Dose: 30 mg Gabapentin (Neurontin) 300 mg PO BID [facility] Last Admin: 06/24/18 08:35 Dose: 300 mg Morphine Sulfate (Morphine) 2 mg IVPUSH Q2H PRN PRN Reason: Pain (severe 7-10) Stop: 06/24/18 14:27 Nicotine (Habitrol) 14 mg TRDERM DAILY [facility] Last Admin: 06/24/18 08:43 Dose: Not Given Ondansetron HCl (Zofran Odt) 4 mg PO Q6H PRN PRN Reason: nausea, able to take PO Oxycodone HCl (Oxycodone) 5 mg PO Q4H PRN PRN Reason: Pain (moderate 4-6) Desvenlafaxine [ (Khedezla] 100 Mg) 1 each PO DAILY [facility] Last Admin: 06/24/18 08:41 Dose: 1 each Ranitidine HCl (Zantac) 150 mg PO BID [facility] Last Admin: 06/24/18 08:35 Dose: 150 mg Sodium Chloride (Saline Flush) 10 ml FLUSH ASDIRECTED PRN PRN Reason: Keep Vein Open Last Admin: 06/23/18 12:49 Dose: 10 ml Sodium Chloride (Saline Flush) 2.5 ml FLUSH ASDIRECTED PRN PRN Reason: Keep Vein Open Last Admin: 06/23/18 12:49 Dose: 2.5 ml Temazepam (Restoril) 15 mg PO BEDTIME PRN PRN Reason: Sleep Discontinued Medications Aspirin (Aspirin) 324 mg PO ONETIME ONE Stop: 06/23/18 12:38 Last Admin: 06/23/18 12:49 Dose: 324 mg Gabapentin (Neurontin) 300 mg PO DAILY [facility] Gabapentin (Neurontin) 150 mg PO BID [facility] Gabapentin (Neurontin) 200 mg PO DAILY [facility] Gabapentin (Neurontin) 100 mg PO BEDTIME [facility] Sodium Chloride (Normal Saline) 1,000 mls @ 125 mls/hr IV ASDIRECTED [facility] Last Admin: 06/23/18 12:49 Dose: 125 mls/hr Iopamidol (Isovue Multipack-370 (76%)) 50 ml IVPUSH ONETIME STA Stop: 06/23/18 14:15 Last Admin: 06/23/18 14:45 Dose: 50 ml Magnesium Hydroxide (Milk Of Magnesia) 30 ml PO ONETIME ONE Stop: 06/23/18 18:19 Last Admin: 06/23/18 18:28 Dose: 30 ml Nitroglycerin (Nitro-Bid 2%) 1 gm TOP ONETIME ONE Stop: 06/23/18 12:39 Last Admin: 06/23/18 12:49 Dose: 1 gm <Durga Loera - Last Filed: 06/24/18 09:42> Discharge Summary - Hospital Course HPI Initial Comments: I have seen and examined the patient independently of bilingual medical assistant. The patient is a 48-year-old lady who had been admitted to observation hospitalization secondary to atypical chest pain. The patient also was noted to have epigastric pain which had been managed effectively with Zantac. The patient also had an elevated troponin and had a CT scan of her chest which did not show any pulmonary emboli. The patient was also noted to be mildly anemic likely iron deficiency anemia and she has been recommended to follow up with this with her primary care physician. Also incidentally noted the patient did have an incidental thyroid nodule which was found on the left side during the CT scan of her chest. This should be followed up with an ultrasound. I have reviewed and agree with the medical residents assessment and plan of care. Please see orders. - Discharge Diagnosis/Problem(s) (1) Atypical angina SNOMED Code(s): 854251317 ICD Code: I20.8 - OTHER FORMS OF ANGINA PECTORIS Status: Acute Priority: High Current Visit: Yes (2) History of gastric bypass SNOMED Code(s): 509078295 ICD Code: Z98.84 - BARIATRIC SURGERY STATUS Status: Chronic Priority: High Current Visit: Yes (3) Iron deficiency 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 SNOMED Code(s): 009460961 ICD Code: D50.8 - OTHER IRON DEFICIENCY ANEMIAS Status: Chronic Priority : Medium Current Visit: Yes (4) Tobacco use SNOMED Code(s): 162044680 ICD Code: Z72.0 - TOBACCO USE Status: Acute Current Visit: Yes - Patient Data Vitals - Most Recent: Last Vital Signs Temp 37.3 C 06/24/18 07:25 Pulse 81 06/24/18 04:00 Resp 14 06/24/18 07:25 BP 128/70 06/24/18 07:25 Pulse Ox 95 06/24/18 07:25 I&O - Last 24 hours: Intake & Output 06/23/18 06/24/18 06/24/18 22:59 06:59 14:59 Intake Total 700 Output Total 1500 Balance -800 Lab Results - Last 24 hrs: Laboratory Results - last 24 hr 06/23/18 06/23/18 06/23/18 Range/Units 12:38 12:38 12:38 WBC 7.06 (4.0-11.0) K/uL RBC 4.97 (4.30-5.90) M/uL Hgb 10.1 L (12.0-16.0) g/dL Hct 33.3 L (36.0-46.0) % MCV 67.0 L (80.0-98.0) fL MCH 20.3 L (27.0-32.0) pg MCHC 30.3 L (31.0-37.0) g/dL RDW Std Deviation 44.9 (28.0-62.0) fl RDW Coeff of Kirill 19 H (11.0-15.0) % Plt Count 464 H (150-400) K/uL MPV 9.00 (7.40-12.00) fL Add Manual Diff Neutrophils % (Manual) (48.0-80.0) % Band Neutrophils % % Lymphocytes % (Manual) (16.0-40.0) % Monocytes % (Manual) (0.0-15.0) % Eosinophils % (Manual) (0.0-7.0) % Basophils % (Manual) (0.0-1.5) % Nucleated RBC % 0.0 /100WBC Absolute Seg Neuts (1.4-5.7) Band Neutrophils # Lymphocytes # (Manual) (0.6-2.4) Monocytes # (Manual) (0.0-0.8) Eosinophils # (Manual) (0.0-0.7) Basophils # (Manual) (0.0-0.1) Nucleated RBCs # 0 K/uL INR 0.98 D-Dimer, Quantitative 2.01 H (0.0-0.52) mg/LFEU Sodium 137 (136-145) mmol/L Potassium 3.8 (3.5-5.1) mmol/L Chloride 104 (98-107) mmol/L Carbon Dioxide 24.6 (21.0-32.0) mmol/L BUN 9 (7.0-18.0) mg/dL Creatinine 0.9 (0.6-1.0) mg/dL Est Cr Clr Drug Dosing 70.28 mL/min Estimated GFR (MDRD) > 60.0 ml/min Glucose 100 (74-106) mg/dL Calcium 8.8 (8.5-10.1) mg/dL Total Bilirubin 0.2 (0.2-1.0) mg/dL AST 22 (15-37) IU/L ALT 25 (14-63) IU/L Alkaline Phosphatase 188 H (46-116) U/L Troponin I < 0.050 (0.000-0.056) ng/mL Total Protein 7.6 (6.4-8.2) g/dL Albumin 3.7 (3.4-5.0) g/dL Globulin 3.9 H (2.0-3.5) g/dL Albumin/Globulin Ratio 1.0 L (1.3-2.8) Urine Color Urine Appearance Urine pH (5.0-8.0) Ur Specific [place] (1.001-1.035) Urine Protein (NEGATIVE) mg/dL Urine Glucose (UA) (NEGATIVE) mg/dL Urine Ketones (NEGATIVE) mg/dL Urine Occult Blood (NEGATIVE) Urine Nitrite (NEGATIVE) Urine Bilirubin (NEGATIVE) Urine Urobilinogen (<2.0) EU/dL Ur Leukocyte Esterase (NEGATIVE) Urine RBC (0-2/HPF) Urine WBC (0-5/HPF) Ur Epithelial Cells (NONE-FEW) Urine Bacteria (NEGATIVE) 06/23/18 06/23/18 06/23/18 Range/Units 12:53 16:16 22:12 WBC (4.0-11.0) K/uL RBC (4.30-5.90) M/uL Hgb (12.0-16.0) g/dL Hct (36.0-46.0) % MCV (80.0-98.0) fL MCH (27.0-32.0) pg MCHC (31.0-37.0) g/dL RDW Std Deviation (28.0-62.0) fl RDW Coeff of Kirill (11.0-15.0) % Plt Count (150-400) K/uL MPV (7.40-12.00) fL Add Manual Diff Neutrophils % (Manual) (48.0-80.0) % Band Neutrophils % % Lymphocytes % (Manual) (16.0-40.0) % Monocytes % (Manual) (0.0-15.0) % Eosinophils % (Manual) (0.0-7.0) % Basophils % (Manual) (0.0-1.5) % Nucleated RBC % /100WBC Absolute Seg Neuts (1.4-5.7) Band Neutrophils # Lymphocytes # (Manual) (0.6-2.4) Monocytes # (Manual) (0.0-0.8) Eosinophils # (Manual) (0.0-0.7) Basophils # (Manual) (0.0-0.1) Nucleated RBCs # K/uL INR D-Dimer, Quantitative (0.0-0.52) mg/LFEU Sodium (136-145) mmol/L Potassium (3.5-5.1) mmol/L Chloride (98-107) mmol/L Carbon Dioxide (21.0-32.0) mmol/L BUN (7.0-18.0) mg/dL Creatinine (0.6-1.0) mg/dL Est Cr Clr Drug Dosing mL/min Estimated GFR (MDRD) ml/min Glucose (74-106) mg/dL Calcium (8.5-10.1) mg/dL Total Bilirubin (0.2-1.0) mg/dL AST (15-37) IU/L ALT (14-63) IU/L Alkaline Phosphatase (46-116) U/L Troponin I < 0.050 < 0.050 (0.000-0.056) ng/mL Total Protein (6.4-8.2) g/dL Albumin (3.4-5.0) g/dL Globulin (2.0-3.5) g/dL Albumin/Globulin Ratio (1.3-2.8) Urine Color YELLOW Urine Appearance CLEAR Urine pH 6.0 (5.0-8.0) Ur Specific [place] 1.015 (1.001-1.035) Urine Protein NEGATIVE (NEGATIVE) mg/dL Urine Glucose (UA) NEGATIVE (NEGATIVE) mg/dL Urine Ketones NEGATIVE (NEGATIVE) mg/dL Urine Occult Blood TRACE-INTACT (NEGATIVE) Urine Nitrite NEGATIVE (NEGATIVE) Urine Bilirubin NEGATIVE (NEGATIVE) Urine Urobilinogen 0.2 (<2.0) EU/dL Ur Leukocyte Esterase NEGATIVE (NEGATIVE) Urine RBC 0-1 (0-2/HPF) Urine WBC 1-3 (0-5/HPF) Ur Epithelial Cells MODERATE (NONE-FEW) Urine Bacteria 1+ H (NEGATIVE) 06/24/18 06/24/18 Range/Units 05:15 05:15 WBC 5.20 (4.0-11.0) K/uL RBC 4.66 (4.30-5.90) M/uL Hgb 9.4 L (12.0-16.0) g/dL Hct 31.2 L (36.0-46.0) % MCV 67.0 L (80.0-98.0) fL MCH 20.2 L (27.0-32.0) pg MCHC 30.1 L (31.0-37.0) g/dL RDW Std Deviation 44.3 (28.0-62.0) fl RDW Coeff of Kirill 18 H (11.0-15.0) % Plt Count 442 H (150-400) K/uL MPV 9.20 (7.40-12.00) fL Add Manual Diff YES Neutrophils % (Manual) 33 L (48.0-80.0) % Band Neutrophils % 2 % Lymphocytes % (Manual) 39 (16.0-40.0) % Monocytes % (Manual) 7 (0.0-15.0) % Eosinophils % (Manual) 17 H (0.0-7.0) % Basophils % (Manual) 2 H (0.0-1.5) % Nucleated RBC % 0.0 /100WBC Absolute Seg Neuts 1.7 (1.4-5.7) Band Neutrophils # 0.1 Lymphocytes # (Manual) 2.0 (0.6-2.4) Monocytes # (Manual) 0.4 (0.0-0.8) Eosinophils # (Manual) 0.9 H (0.0-0.7) Basophils # (Manual) 0.1 (0.0-0.1) Nucleated RBCs # 0 K/uL INR D-Dimer, Quantitative (0.0-0.52) mg/LFEU Sodium 140 (136-145) mmol/L Potassium 4.1 (3.5-5.1) mmol/L Chloride 107 (98-107) mmol/L Carbon Dioxide 24.5 (21.0-32.0) mmol/L BUN 9 (7.0-18.0) mg/dL Creatinine 0.8 (0.6-1.0) mg/dL Est Cr Clr Drug Dosing 79.07 mL/min Estimated GFR (MDRD) > 60.0 ml/min Glucose 95 (74-106) mg/dL Calcium 8.8 (8.5-10.1) mg/dL Total Bilirubin 0.2 (0.2-1.0) mg/dL AST 17 (15-37) IU/L ALT 19 (14-63) IU/L Alkaline Phosphatase 163 H (46-116) U/L Troponin I (0.000-0.056) ng/mL Total Protein 6.8 (6.4-8.2) g/dL Albumin 3.2 L (3.4-5.0) g/dL Globulin 3.6 H (2.0-3.5) g/dL Albumin/Globulin Ratio 0.9 L (1.3-2.8) Urine Color Urine Appearance Urine pH (5.0-8.0) Ur Specific [place] (1.001-1.035) Urine Protein (NEGATIVE) mg/dL Urine Glucose (UA) (NEGATIVE) mg/dL Urine Ketones (NEGATIVE) mg/dL Urine Occult Blood (NEGATIVE) Urine Nitrite (NEGATIVE) Urine Bilirubin (NEGATIVE) Urine Urobilinogen (<2.0) EU/dL Ur Leukocyte Esterase (NEGATIVE) Urine RBC (0-2/HPF) Urine WBC (0-5/HPF) Ur Epithelial Cells (NONE-FEW) Urine Bacteria (NEGATIVE) Med Orders - Current: Current Medications Acetaminophen (Tylenol) 650 mg PO Q4H PRN PRN Reason: Pain (Mild 1-3)/fever Last Admin: 06/23/18 20:49 Dose: 650 mg Docusate Sodium (Colace) 100 mg PO BID PRN PRN Reason: Constipation Enoxaparin Sodium (Lovenox) 30 mg SUBCUT Q24H [facility] Last Admin: 06/23/18 16:28 Dose: 30 mg Gabapentin (Neurontin) 300 mg PO BID [facility] Last Admin: 06/24/18 08:35 Dose: 300 mg Morphine Sulfate (Morphine) 2 mg IVPUSH Q2H PRN PRN Reason: Pain (severe 7-10) Stop: 06/24/18 14:27 Nicotine (Habitrol) 14 mg TRDERM DAILY [facility] Last Admin: 06/24/18 08:43 Dose: Not Given Ondansetron HCl (Zofran Odt) 4 mg PO Q6H PRN PRN Reason: nausea, able to take PO Oxycodone HCl (Oxycodone) 5 mg PO Q4H PRN PRN Reason: Pain (moderate 4-6) Desvenlafaxine [ (Khedezla] 100 Mg) 1 each PO DAILY [facility] Last Admin: 06/24/18 08:41 Dose: 1 each Ranitidine HCl (Zantac) 150 mg PO BID [facility] Last Admin: 06/24/18 08:35 Dose: 150 mg Sodium Chloride (Saline Flush) 10 ml FLUSH ASDIRECTED PRN PRN Reason: Keep Vein Open Last Admin: 06/23/18 12:49 Dose: 10 ml Sodium Chloride (Saline Flush) 2.5 ml FLUSH ASDIRECTED PRN PRN Reason: Keep Vein Open Last Admin: 06/23/18 12:49 Dose: 2.5 ml Temazepam (Restoril) 15 mg PO BEDTIME PRN PRN Reason: Sleep Discontinued Medications Aspirin (Aspirin) 324 mg PO ONETIME ONE Stop: 06/23/18 12:38 Last Admin: 06/23/18 12:49 Dose: 324 mg Gabapentin (Neurontin) 300 mg PO DAILY [facility] Gabapentin (Neurontin) 150 mg PO BID [facility] Gabapentin (Neurontin) 200 mg PO DAILY [facility] Gabapentin (Neurontin) 100 mg PO BEDTIME [facility] Sodium Chloride (Normal Saline) 1,000 mls @ 125 mls/hr IV ASDIRECTED [facility] Last Admin: 06/23/18 12:49 Dose: 125 mls/hr Iopamidol (Isovue Multipack-370 (76%)) 50 ml IVPUSH ONETIME STA Stop: 06/23/18 14:15 Last Admin: 06/23/18 14:45 Dose: 50 ml Magnesium Hydroxide (Milk Of Magnesia) 30 ml PO ONETIME ONE Stop: 06/23/18 18:19 Last Admin: 06/23/18 18:28 Dose: 30 ml Nitroglycerin (Nitro-Bid 2%) 1 gm TOP ONETIME ONE Stop: 06/23/18 12:39 Last Admin: 06/23/18 12:49 Dose: 1 gm
--- NOTE | 2018-06-24 09:57 | CT ---
EXAM DATE: 06/23/18 PATIENT'S AGE: 48 Patient: OMAR HANDY Facility: [place], [place] Site . Site : [id number] Study: CT Chest Angio [id number] 2:43:29 PM Ordering Physician: Yumiko Tavera Final Report: INDICATION: Chest pain; rule out pulmonary thromboembolism. COMPARISON: Chest radiograph same date. TECHNIQUE: CT chest with intravenous contrast; coronal and sagittal reformats. FINDINGS: No CT evidence of acute or chronic pulmonary thromboembolism. No evidence of aortic aneurysm or dissection. Normal size cardiac silhouette without any evidence of pericardial effusion. No abnormal mediastinal or hilar lymphadenopathy. No abnormal intra pulmonary nodular densities are identified. No evidence of pleural effusion or chest wall pathology. Limited CT through the upper abdomen is unremarkable. Postop changes upper abdomen. Small low dense nodule left lobe thyroid gland; suggest obtaining a dedicated ultrasound examination of the thyroid. IMPRESSION: 1. No CT evidence of pulmonary thromboembolism. 2. No evidence of aortic aneurysm or dissection. 3. Nodule left lobe thyroid gland; suggest obtaining a dedicated ultrasound examination. Please note that all CT scans at this facility use dose modulation, iterative reconstruction, and/or weight-based dosing when appropriate to reduce radiation dose to as low as reasonably achievable. Dictated by Jayshree Castellano MD @ Jun 23 2018 3:18PM (Electronic Signature) Report Signed by Proxy. [facility]
== END 2018-06-24 10:00 | disposition home or self-care (01) ==
LOC: MW.ED 12:22 → MW.MS 14:24 → UNDODISOB 06-24 10:00
PROVIDERS: ADMIT Internal Medicine; ATTEND Internal Medicine
DX: I20.9 Angina pectoris, unspecified (principal); D50.8 Other iron deficiency anemias; F17.200 Nicotine dependence, unspecified, uncomplicated; Z98.84 Bariatric surgery status; Z79.899 Other long term (current) drug therapy
CPT/HCPCS: 36415; 71045; 71275; 80053; 81001; 84484; 85025; 85027; 85379; 85610; 87086; 93005; 96360; 96361; 96372; 99285; A9270; G0378; J1650; J7040; Q9967

== ENCOUNTER 2018-11-13 15:15 | Emergency (ER) | payer BC ==
--- NOTE | 2018-11-13 15:36 | EDM.PDOC ---
ED HPI GENERAL MEDICAL PROBLEM - General Chief Complaint: Lower Extremity Injury/Pain Stated Complaint: HURT ANKLE Time Seen by Provider: 11/13/18 15:35 Source of Information: Reports: Patient History Limitations: Reports: No Limitations - History of Present Illness INITIAL COMMENTS - FREE TEXT/NARRATIVE: HISTORY AND PHYSICAL: History of present illness: Patient is a 48-year-old female who presents to the emergency today with concerns of right ankle pain after falling on the ice. Patient states she had just fallen prior to coming to the ED. She states she is unsure if she twisted it or fell on it as she slipped on the ice. Patient states she did not hit anything else or hurt any other part of her body. Patient denies prior injury to this area. Patient is able to fully move toes ankle knee and has full sensation. Patient was not able to ambulate immediately following. Review of systems: As per history of present illness and below otherwise all systems reviewed and negative. Past medical history: As per history of present illness and as reviewed below otherwise noncontributory. Surgical history: As per history of present illness and as reviewed below otherwise noncontributory. Social history: See social history for further information Family history: As per history of present illness and as reviewed below otherwise noncontributory. Physical exam: General: Patient is alert, oriented, and in no acute distress. She is lying comfortably on exam table. HEENT: Atraumatic, normocephalic, pupils equal and reactive bilaterally, negative for conjunctival pallor or scleral icterus, mucous membranes moist, TMs normal bilaterally, throat clear, neck supple, nontender, trachea midline. No drooling or trismus noted. No meningeal signs. No hot potato voice noted. Lungs: Clear to auscultation, breath sounds equal bilaterally, chest nontender. Heart: S1S2, regular rate and rhythm without overt murmur Abdomen: Soft, nondistended, nontender. Negative for masses or hepatosplenomegaly. Negative for costovertebral tenderness. Pelvis: Stable nontender. Genitourinary: Deferred. Rectal: Deferred. Skin: Intact, warm, dry. No lesions or rashes noted. Extremities: Moderate pain to palpation over the distal tibia of the right leg. Patient has full range of motion of complete extremities bilaterally with full sensation to light touch bilaterally. Dorsalis pedis and posterior tibial pulses intact bilaterally. Otherwise, atraumatic, negative for cords or calf pain. Neurovascular unremarkable. Neuro: Awake, alert, oriented. Cranial nerves II through XII unremarkable. Cerebellum unremarkable. Motor and sensory unremarkable throughout. Exam nonfocal. Notes: On exam, patient did have moderate pain to palpation over the distal tibia and fibula on the right leg. I will do x-ray imaging of the ankle to assess for underlying imaging. X-ray imaging shows oblique fracture distal fibula, demonstrating no significant displacement. No visible fracture of the distal tibia nor the hindfoot. Patient was offered Snelling for pain in the ED, however, due to her history of issues with addiction she requests all nonnarcotic medications. Toradol was given. Patient also offered pain medications for at home and patient declines and states she will use ibuprofen. Supportive measures were reviewed and discussed with patient. Patient is agreeable to plan of care and has no questions at this time. Diagnostics: X-ray right ankle Therapeutics: Toradol Prescription: None Impression: Oblique distal fibula fracture Plan: 1. Keep the splint on until you have been cleared/re-evaluated by the orthopedic provider. Use crutches as directed. You can ice the area 15 minutes on 20 minutes off for the next 1-2 days to minimize swelling and pain. 2. Alternate ibuprofen and Tylenol as needed for pain. 3. Follow-up with Orthopedic provider or orthopedics in the next 1-2 days. Return to the ED as needed and as discussed. Definitive disposition and diagnosis as appropriate pending reevaluation and review of above. 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 History: Reports: None Musculoskeletal History: Reports: None Neurological History: Reports: None Psychiatric History: Reports: Anxiety, Depression Endocrine/Metabolic History: Reports: None Hematologic History: Reports: None Immunologic History: Reports: None Oncologic (Cancer) History: Reports: None Dermatologic History: Reports: None - Past Surgical History Head Surgeries/Procedures: Reports: None HEENT Surgical History: Reports: None Cardiovascular Surgical History: Reports: None Respiratory Surgical History: Reports: None GI Surgical History: Reports: Bariatric Procedure Female Surgical History: Reports: None Endocrine Surgical History: Reports: None Neurological Surgical History: Reports: None Musculoskeletal Surgical History: Reports: None Oncologic Surgical History: Reports: None Dermatological Surgical History: Reports: None Social & Family History - Family History Family Medical History: Noncontributory Cardiac: Reports: DC - Caffeine Use Caffeine Use: Reports: Coffee Review of Systems - Review of Systems Review Of Systems: ROS reveals no pertinent complaints other than HPI. ED EXAM, GENERAL - Physical Exam Exam: See Below (See dictation) Course - Vital Signs Last Recorded V/S: Last Vital Signs Temp 96.7 F 11/13/18 15:35 Pulse 90 11/13/18 15:35 Resp 18 11/13/18 15:35 BP 117/73 11/13/18 15:35 Pulse Ox 94 L 11/13/18 15:35 - Orders/Labs/Meds Orders: Active Orders 24 hr Category Date Time Status DME for Discharge [COMM] Stat Oth 11/13/18 15:54 Ordered Meds: Medications Discontinued Medications Generic Name Dose Route Start Last Admin Trade Name Bijan PRN Reason Stop Dose Admin Hydrocodone Bitart/Acetaminophen 1 tab 11/13/18 15:54 Snelling 325-5 Mg PO 11/13/18 15:55 ONETIME ONE Ketorolac Tromethamine 60 mg 11/13/18 15:45 Toradol IM 11/13/18 15:46 ONETIME ONE Ketorolac Tromethamine 60 mg 11/13/18 15:58 11/13/18 16:05 Toradol IM 11/13/18 15:59 60 mg ONETIME ONE Administration Departure - Departure Time of Disposition: 16:10 Disposition: Home, Self-Care 01 Clinical Impression: Fibula fracture Qualifiers: Encounter type: initial encounter Fibula location: distal Fracture type: closed Fracture morphology: unspecified fracture morphology Laterality: right Qualified Code(s): S82.831A - Other fracture of upper and lower end of right fibula, initial encounter for closed fracture - Discharge Information Referrals: PCP,None [Primary Care Provider] - Forms: ED Department Discharge Additional Instructions: The following information is given to patients seen in the emergency department who are being discharged to home. This information is to outline your options for follow-up care. We provide all patients seen in our emergency department with a follow-up referral. The need for follow-up, as well as the timing and circumstances, are variable depending upon the specifics of your emergency department visit. If you don't have a primary care physician on staff, we will provide you with a referral. We always advise you to contact your personal physician following an emergency department visit to inform them of the circumstance of the visit and for follow-up with them and/or the need for any referrals to a consulting specialist. The emergency department will also refer you to a specialist when appropriate. This referral assures that you have the opportunity for follow-up care with a specialist. All of these measure are taken in an effort to provide you with optimal care, which includes your follow-up. Under all circumstances we always encourage you to contact your private physician who remains a resource for coordinating your care. When calling for follow-up care, please make the office aware that this follow-up is from your recent emergency room visit. If for any reason you are refused follow-up, please contact the [facility] Emergency Department at and asked to speak to the emergency department charge nurse. [facility] Primary Care [address] [place], [place] [id number] [address] [address] [facility] Specialty Care - Orthopedic Clinic Professional Building [address], [address] [place] [address] 1. Keep the splint on until you have been cleared/re-evaluated by the orthopedic provider. Use crutches as directed. You can ice the area 15 minutes on 20 minutes off for the next 1-2 days to minimize swelling and pain. 2. Alternate ibuprofen and Tylenol as needed for pain. 3. Follow-up with Orthopedic provider or orthopedics in the next 1-2 days. Return to the ED as needed and as discussed. - My Orders Last 24 Hours: My Active Orders 11/13/18 15:54 DME for Discharge [COMM] Stat - Assessment/Plan Last 24 Hours: My Active Orders 11/13/18 15:54 DME for Discharge [COMM] Stat
[2018-11-13] MEDS ORDERED: Ketorolac 60 MG/2 ML SDV IM ONE ×2 (15:45→15:58)
[2018-11-13] MEDS ORDERED: Acetaminophen/HYDROcodone 325-5 MG Tab PO ONE (15:54)
--- NOTE | 2018-11-13 16:12 | CR ---
INDICATION: Fall. TECHNIQUE: Three views. FINDINGS: Oblique fracture distal fibula, demonstrates no significant displacement. Ankle mortise well maintained. No visible fracture distal tibia nor the hindfoot, where seen. Dictated by Hever Hill MD @ Nov 13 2018 4:09PM Signed by Dr. Hever Hill @ Nov 13 2018 4:10PM
[2018-11-13 17:07] VITALS: BP 115/80
== END 2018-11-13 16:45 | disposition home or self-care (01) ==
LOC: MW.ED 15:15
DX: S82.831A Other fracture of upper and lower end of right fibula, initial encounter for closed fracture (principal); F41.9 Anxiety disorder, unspecified; F32.9 Major depressive disorder, single episode, unspecified; W00.0XXA Fall on same level due to ice and snow, initial encounter; Z79.899 Other long term (current) drug therapy; Z88.0 Allergy status to penicillin
CPT/HCPCS: 29515; 73610; 96372; 99283; J1885

== ENCOUNTER 2020-10-18 02:34 | Emergency (ER) | payer BC ==
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
[2020-10-18] MEDS ORDERED: Acetaminophen 325 MG Tab PO ONE (03:32)
--- NOTE | 2020-10-18 04:19 | CT ---
INDICATION: Injury TECHNIQUE: CT head without contrast. COMPARISON: None available FINDINGS: There is mild frontal cortical volume loss for age. The ventricles are within normal limits. There is no mass effect or midline shift. There is no loss of paez-white differentiation. There is no evidence of gross acute intracranial hemorrhage. No acute calvarial fracture is seen. There is left facial soft tissue swelling. There is mild right sphenoid sinus mucosal thickening. The mastoid air cells are clear. The visualized orbits are within normal limits. IMPRESSION: No evidence of a gross acute intracranial hemorrhage, mass effect or loss of paez-white differentiation. Please note that all CT scans at this facility use dose modulation, iterative reconstruction, and/or weight-based dosing when appropriate to reduce radiation dose to as low as reasonably achievable. Dictated by Apollo Vargas MD @ Oct 18 2020 4:11AM Signed by Dr. Apollo Vargas @ Oct 18 2020 4:17AM
--- NOTE | 2020-10-18 04:23 | CT ---
INDICATION: Injury TECHNIQUE: CT maxillofacial without contrast. COMPARISON: None available FINDINGS: The study is limited by patient`s motion. No definite acute facial bone fracture is seen. There is left facial soft tissue swelling with a small subcutaneous hematoma, and mild focal right facial soft tissue swelling. The orbital contents appear grossly symmetrical. There is mild right sphenoid sinus mucosal thickening. There are no air-fluid levels. The mastoid air cells are clear. IMPRESSION: No evidence of a definite facial bone fracture. Please note that all CT scans at this facility use dose modulation, iterative reconstruction, and/or weight-based dosing when appropriate to reduce radiation dose to as low as reasonably achievable. Dictated by Apollo Vargas MD @ Oct 18 2020 4:11AM Signed by Dr. Apollo Vargas @ Oct 18 2020 4:22AM
[2020-10-18 06:20] VITALS: BP 148/82; PULSE 85
== END 2020-10-18 05:04 | disposition home or self-care (01) ==
LOC: MW.ED 02:34
DX: S40.021A Contusion of right upper arm, initial encounter (principal); S00.03XA Contusion of scalp, initial encounter; S00.83XA Contusion of other part of head, initial encounter; Z88.0 Allergy status to penicillin; Y04.0XXA Assault by unarmed brawl or fight, initial encounter
CPT/HCPCS: 70450; 70486; 99284; A9270

== ENCOUNTER 2022-02-17 06:29 | Day surgery (SDC) | payer BC ==
[~2022-02-17 06:29] MED LIST: Lactated Ringers 1,000 ML IV SCH
[2022-02-17] MEDS ORDERED: Propofol 200 MG/20 ML SDV ONE ×3 (07:22→10:33)
[2022-02-17] MEDS ORDERED: Lidocaine 2% 5 ML SDV ONE (07:23)
[2022-02-17] MEDS ORDERED: fentaNYL 100 MCG/2 ML SDV ONE (07:23)
[2022-02-17] MEDS ORDERED: Ketamine 500 mg/10 ML MDV ONE (10:06)
[2022-02-17] MEDS ORDERED: Glycopyrrolate 0.2 MG/ML SDV ONE (10:29)
[2022-02-17] MEDS ORDERED: Lactated Ringers 1,000 ML IV SCH (10:45)
[2022-02-17 11:29] VITALS: BP 158/86; PULSE 105
== END 2022-02-17 11:30 | disposition home or self-care (01) ==
LOC: MW.SDS 06:29
PROVIDERS: ATTEND Surgery
DX: R10.31 Right lower quadrant pain (principal); R10.32 Left lower quadrant pain; K29.70 Gastritis, unspecified, without bleeding; K44.9 Diaphragmatic hernia without obstruction or gangrene; K22.89 Other specified disease of esophagus; K20.90 Esophagitis, unspecified without bleeding; D50.9 Iron deficiency anemia, unspecified; F17.210 Nicotine dependence, cigarettes, uncomplicated; Z98.84 Bariatric surgery status; Z86.010 Personal history of colon polyps; Z88.0 Allergy status to penicillin; Z98.890 Other specified postprocedural states; Z79.899 Other long term (current) drug therapy
CPT/HCPCS: 43239; 45378; 81025; J2704; J3010; J3490; J7120

== ENCOUNTER 2022-04-04 07:33 | Day surgery (SDC) | payer BC ==
[~2022-04-04 07:33] MED LIST changes: +Ciprofloxacin in D5W 400 MG in Premix Bag 1 BAG IV SCH
[2022-04-04] MEDS ORDERED: Lidocaine 2% 5 ML SDV ONE (07:49)
[2022-04-04] MEDS ORDERED: Ondansetron 4 MG/2 ML SDV ONE ×2 (07:49→11:47)
[2022-04-04] MEDS ORDERED: Rocuronium 100 MG/10 ML MDV ONE (07:49)
[2022-04-04] MEDS ORDERED: Dexmedetomidine 200 MCG/2 ML SDV ONE (07:49)
[2022-04-04] MEDS ORDERED: Water For Injection, Sterile 20 ML ONE ×2 (07:50→10:46)
[2022-04-04] MEDS ORDERED: propofoL 100 ML ONE (07:50)
[2022-04-04] MEDS ORDERED: fentaNYL 100 MCG/2 ML SDV ONE (07:52)
[2022-04-04] MEDS ORDERED: Scopolamine 1.5 MG Transdermal Patch TOP ONE (08:26)
[2022-04-04] MEDS ORDERED: fentaNYL 50 MCG/ML SDV IVPUSH PRN (08:27)
[2022-04-04] MEDS ORDERED: Naloxone 0.4 MG/ML SDV IVPUSH PRN (08:27)
[2022-04-04] MEDS ORDERED: Albuterol 0.083% 2.5 MG/3 ML Neb Soln NEB PRN (08:27)
[2022-04-04] MEDS ORDERED: Metoclopramide 10 MG/2 ML SDV IVPUSH PRN (08:27)
[2022-04-04] MEDS ORDERED: Morphine 2 MG/ML SYRINGE IVPUSH PRN ×2 (08:27→12:27)
[2022-04-04] MEDS ORDERED: HYDROmorphone 1 MG/ML Syringe IVPUSH PRN (08:27)
[2022-04-04] MEDS ORDERED: Ondansetron 4 MG/2 ML SDV IVPUSH PRN (08:27)
[2022-04-04] MEDS ORDERED: Bupivacaine 0.5% 30 ML SDV ONE (08:32)
[2022-04-04] MEDS ORDERED: Ropivacaine 0.5% 5 MG/ML 30 ML SDV ONE (08:54)
[2022-04-04] MEDS ORDERED: Indocyanine Green 25 MG SDV ONE (08:54)
[2022-04-04] MEDS ORDERED: Ketorolac 30 MG/ML SDV ONE (11:47)
[2022-04-04] MEDS ORDERED: Sugammadex Sodium 200 MG/2 ML VIAL ONE (11:47)
[2022-04-04] MEDS ORDERED: Propofol 200 MG/20 ML SDV ONE (12:01)
[2022-04-04] MEDS ORDERED: Acetaminophen/HYDROcodone 325-5 MG Tab PO PRN ×2 (12:27→12:40)
[2022-04-04] MEDS ORDERED: Lactated Ringers 1,000 ML IV SCH (12:30)
[2022-04-04 14:03] VITALS: BP 120/72; PULSE 64
== END 2022-04-04 14:19 | disposition home or self-care (01) ==
LOC: MW.SDS 07:33
PROVIDERS: ATTEND Surgery
DX: K81.2 Acute cholecystitis with chronic cholecystitis (principal); K90.49 Malabsorption due to intolerance, not elsewhere classified; K43.2 Incisional hernia without obstruction or gangrene; Z91.040 Latex allergy status; Z79.899 Other long term (current) drug therapy; Z88.0 Allergy status to penicillin
CPT/HCPCS: 47562; 81025; A9270; J0131; J0744; J1885; J2405; J2704; J2795; J3010; J3490; J7030; J7120; 00790; 64488